=== PATIENT | female | born 1970 | race Caucasian/White ===

== ENCOUNTER 2020-02-05 18:36 | Emergency (ER) | payer BC, OTHER ==
[~2020-02-05] VITALS: Ht 162.6 cm; Wt 95.3 kg
--- NOTE | 2020-02-05 18:44 | NUR ---
KAVEH MUNOZ AT BEDSIDE FOR EVAL.
--- NOTE | 2020-02-05 18:50 | NUR ---
PAPER CONE GRADER AT BEDSIDE FOR XRAY.
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
[2020-02-05] MEDS ORDERED: HYDROCODONE/APAP 5/325MG 1 EACH TABLET PO ONE (20:00)
[2020-02-05] MEDS ORDERED: HYDROCODONE/APAP 5/325MG 1 EACH TABLET ONE (20:09)
--- NOTE | 2020-02-05 21:54 | NUR ---
PT EDUCATED W/ CRUTCH USE. GAIT TRAINING DONE.
--- NOTE | 2020-02-05 22:01 | NUR ---
Patient discharged to home in stable condition. Written and verbal after care instructions given. Patient verbalizes understanding of instruction.pt. ambulatory with a steady gait
[2020-02-05 22:02] VITALS: BP 114/89
== END 2020-02-05 22:02 | disposition home or self-care (01) ==
LOC: ER 18:39
DX: S82.141A Displaced bicondylar fracture of right tibia, initial encounter for closed fracture (principal); S83.511A Sprain of anterior cruciate ligament of right knee, initial encounter; W01.0XXA Fall on same level from slipping, tripping and stumbling without subsequent striking against object, initial encounter; Y93.89 Activity, other specified; Y92.89 Other specified places as the place of occurrence of the external cause; Y99.8 Other external cause status
CPT/HCPCS: 73564-TC; 73590-TC; 73700-TC